=== PATIENT | male | born 1935 | race Caucasian/White ===

== ENCOUNTER 2019-09-07 22:00 | Inpatient (IN) ==
[2019-09-07 22:41] LABS: Basophils % 0.2 %; Eosinophils # 0.2 K/mcL (0.0-0.6); Eosinophils % 3.4 %; Hematocrit 42.4 % (37.5-50.1); Hemoglobin 14.1 g/dL (12.9-16.9); Immature Granulocytes % 0.2 % (0-4); Lymphocytes # 2.2 K/mcL (0.6-4.6); Lymphocytes % 40.5 %; Mean Corpuscular HGB Conc 33.3 g/dL (31.6-35.5); Mean Corpuscular Hemoglobin 27.3 pg (28.0-33.3); Mean Corpuscular Volume 82.2 fL (83.0-100.0); Mean Platelet Volume 11.8 fL (9.4-12.4); Monocytes # 0.5 K/mcL (0.0-1.3); Monocytes % 8.3 %; Neutrophils # 2.6 K/mcL (1.6-8.9); Platelet Count 175 K/mcL (140-400); Red Blood Count 5.16 M/mcL (4.19-5.50); Red Cell Distribution Width 13.7 % (11.5-14.5); Segmented Neutrophils % 47.4 %; White Blood Count 5.5 K/mcL (4.3-11.1)
[2019-09-07 22:54] LABS: Prothrombin Time 11.4 Seconds (9.4-12.1)
[2019-09-07 22:56] LABS: Activated Partial Thrombo Time 29.9 Seconds (26.0-36.0)
[2019-09-07 23:08] LABS: Alanine Aminotransferase 13 Units/L (7-52); Albumin 4.3 g/dL (3.5-5.7); Albumin/Globulin Ratio 1.7 (1.1-2.2); Alkaline Phosphatase 155 Units/L (34-104); Aspartate Amino Transferase 20 Units/L (13-39); BUN/Creatinine Ratio 24 (6-26); Bilirubin,Total 0.3 mg/dL (0.3-1.0); Blood Urea Nitrogen 20 mg/dL (8-23); Calcium 9.7 mg/dL (8.6-10.3); Carbon Dioxide 26 mEq/L (23-29); Chloride 100 mEq/L (98-107); Globulin 2.6 g/dL (2.4-3.5); Glucose 117 mg/dL (70-105); Osmolality,Calculated 286 (280-300); Sodium 136 mEq/L (136-145); Total Protein 6.9 g/dL (6.4-8.9); Troponin I < 0.03 ng/mL (< 0.04); eGFR For African Americans > 60 (> 60); eGFR For Non-African Americans > 60 (> 60)
[2019-09-07] MEDS ORDERED: Isovue-370 500 ML BOTTLE IVP ONE (23:59)
[2019-09-08 00:57] LABS: Bilirubin,Urine Negative (Negative); Blood,Urine Negative (Negative); Clarity,Urine Clear (Clear); Color,Urine Colorless (Yellow); Glucose,Urine (UA) Normal (Normal); Ketones,Urine Negative (Negative); Leukocyte Esterase,Urine Negative (Negative); Nitrite,Urine Negative (Negative); PH,Urine 6.5 pH Units (5.0-8.0); Protein,Urine Negative (Neg-Trace); Specific Gravity,Urine 1.009 (1.010-1.025); Urobilinogen,Urine Normal (Normal)
[2019-09-08] MEDS ORDERED: Perflutren Lipid Microsphere 1.3 ML in 0.9 % Sodium Chloride 8.7 ML IVP PRN (08:33)
[2019-09-08] MEDS ORDERED: *HR* Dextrose 50 % in Water (Vial) 50 ML VIAL IVP PRN (08:56)
[2019-09-08] MEDS ORDERED: Dextrose Gel 15 GM/37.5 ML TUBE PO PRN ×2 (08:56)
[2019-09-08] MEDS ORDERED: D5% in Water 1,000 ML IVC PRN (08:56)
[2019-09-08] MEDS: Aspirin Enteric Coated 81 MG Tablet PO SCH (09:57)
[2019-09-08] MEDS: Insulin LISPRO 300 UNITS/3 ML VIAL SQ SCH ×3 (12:49→21:42)
[2019-09-08 13:38] LABS: Chol/HDL Ratio 5.7 (0-4.9)
[2019-09-08 13:58] LABS: Estimated Average Glucose 146 mg/dl; Hemoglobin A1C 6.7 %
[2019-09-08 14:04] LABS: Folate 13.2 ng/mL (3.0-16.0)
[2019-09-08 14:09] LABS: Vitamin B12 > 1500 pg/mL (250-1100)
[2019-09-08] MEDS ORDERED: Saline Nasal Spray 44 ML BOTTLE NS PRN (15:23)
[2019-09-08] MEDS: 0.9 % Sodium Chloride 1,000 ML IVC SCH (16:11)
[2019-09-08] MEDS: Amoxicillin 500 MG CAPSULE PO SCH (16:16)
[2019-09-09] MEDS: Amoxicillin 500 MG CAPSULE PO SCH ×4 (01:22→23:57)
[2019-09-09 03:41] LABS: BUN/Creatinine Ratio 22 (6-26); Blood Urea Nitrogen 19 mg/dL (8-23); Calcium 9.2 mg/dL (8.6-10.3); Carbon Dioxide 22 mEq/L (23-29); Chloride 103 mEq/L (98-107); Glucose 118 mg/dL (70-105); Magnesium 2.2 mg/dL (1.6-2.6); Osmolality,Calculated 285 (280-300); Phosphorous 3.7 mg/dL (2.7-4.5); Potassium 4.1 mEq/L (3.5-5.1); Sodium 136 mEq/L (136-145); eGFR For African Americans > 60 (> 60); eGFR For Non-African Americans > 60 (> 60)
[2019-09-09] MEDS: 0.9 % Sodium Chloride 1,000 ML IVC SCH (05:35)
[2019-09-09] MEDS: Insulin LISPRO 300 UNITS/3 ML VIAL SQ SCH ×4 (08:39→21:15)
[2019-09-09] MEDS: Aspirin Enteric Coated 81 MG Tablet PO SCH (08:46)
[2019-09-09] MEDS: Metoprolol XL (24 HR) Succ 25 MG TAB.ER.24H PO SCH (08:46)
[2019-09-10 07:19] VITALS: BP 145/73
[2019-09-10] MEDS: Insulin LISPRO 300 UNITS/3 ML VIAL SQ SCH (07:27)
[2019-09-10] MEDS: Amoxicillin 500 MG CAPSULE PO SCH (08:15)
[2019-09-10] MEDS: Metoprolol XL (24 HR) Succ 25 MG TAB.ER.24H PO SCH (08:15)
[2019-09-10] MEDS: Aspirin Enteric Coated 81 MG Tablet PO SCH (08:15)
== END 2019-09-10 12:56 | disposition home health service (06) | DRG 68 ==
LOC: EMEROOARM 22:00 → 3BNU 22:00 → SUATTDRO 09-08 07:40 → 3BNU 09-08 08:00
PROVIDERS: ADMIT Internal Medicine; ATTEND Internal Medicine